=== PATIENT | male | born 1965 | race African-American/Black ===

== ENCOUNTER 2020-04-03 20:49 | Emergency (ER) | payer OTHER ==
--- NOTE | 2020-04-03 21:39 | RAD ---
RIGHT RIBS: 04/03/20 Three views. HISTORY: Fall with injury. There is a mildly displaced fracture of the lateral right 8th rib. No other rib fracture identified. The right lung is expanded and clear with no pneumothorax. IMPRESSION: Mildly displaced fracture lateral right 8th rib. POS: AGW
--- NOTE | 2020-04-03 21:45 | RAD ---
PA CHEST: 04/03/20 INDICATIONS: Fall. Lungs appear clear. No infiltrate. Heart size is upper normal. Vascularity is mildly prominent. IMPRESSION: No acute abnormality identified. POS: AGW
[2020-04-03] MEDS ORDERED: HYDROcodone/Acetaminophen 5/325 mg Tablet ONE (21:59)
== END 2020-04-03 22:05 | disposition home or self-care (01) ==
LOC: NAV ERS 20:49
DX: S22.31XA Fracture of one rib, right side, initial encounter for closed fracture (principal); I10 Essential (primary) hypertension; W01.0XXA Fall on same level from slipping, tripping and stumbling without subsequent striking against object, initial encounter
CPT/HCPCS: 71045

== ENCOUNTER 2022-05-24 19:35 | Emergency (ER) | payer BC, OTHER ==
[2022-05-24] MEDS ORDERED: Acetaminophen 500 MG TAB ONE (19:58)
== END 2022-05-24 20:25 | disposition home or self-care (01) ==
LOC: NAV ERS 19:35
DX: S42.211A Unspecified displaced fracture of surgical neck of right humerus, initial encounter for closed fracture (principal); S42.251A Displaced fracture of greater tuberosity of right humerus, initial encounter for closed fracture; S42.261A Displaced fracture of lesser tuberosity of right humerus, initial encounter for closed fracture; I10 Essential (primary) hypertension; X58.XXXA Exposure to other specified factors, initial encounter